=== PATIENT | male | born 1965 | race Caucasian/White ===

== ENCOUNTER 2019-12-23 23:36 | Emergency (ER) | payer MEDICAID, OTHER, SELFPAY ==
[~2019-12-23] VITALS: Ht 193 cm; Wt 108.0 kg
--- NOTE | 2019-12-23 23:43 | NUR ---
PT BIB [facility] FOR 10/10 RIGHT SIDED FLANK PAIN. PT WITH PMH OF KIDNEY STONES. PER EMS, PT WAS PICKED UP AT HOME. IV ACCESS ESTABLISHED EN ROUTE TO [facility]. PT CHANGED INTO GOWN AND INTO GURNEY UPON ARRIVAL. PT ATTACHED TO VS MONITORS. VSS AT THIS TIME. PT EDUCATED ON ER PROCESS AND POC AND VERBALIZES UNDERSTANDING. CALL LIGHT IS WITHIN REACH AT THIS TIME.
[2019-12-23] MEDS ORDERED: SODIUM CHLORIDE 0.9% 1,000 ML IV ONE (23:45)
[2019-12-23] MEDS ORDERED: KETOROLAC 30 MG/1 ML ONE (23:53)
[2019-12-23 23:59] LABS: BASOPHILS # (AUTO) 0.03 x10^3/uL (0-0.1); BASOPHILS % (AUTO) 0 % (0-1); EOSINOPHILS # (AUTO) 0.24 x10^3/uL (0-0.4); EOSINOPHILS % (AUTO) 3 % (1-7); LYMPHOCYTES # (AUTO) 1.95 x10^3/uL (1-3.4); LYMPHOCYTES % (AUTO) 26 % (22-44); MD NO; MEAN CORPUSCULAR HEMOGLOBIN 31.9 pg (27.5-34.5); MEAN CORPUSCULAR HGB CONC 33.9 g/dL (33.2-36.2); MEAN PLATELET VOLUME 7.4 fL (7.4-10.4); MONOCYTES # (AUTO) 0.41 x10^3/uL (0.2-0.8); MONOCYTES % (AUTO) 5 % (2-9); NEUTROPHILS # (AUTO) 4.93 x10^3/uL (1.8-6.8); NEUTROPHILS % (AUTO) 65 % (42-75); PLATELET COUNT 310 x10^3/uL (130-400); RED BLOOD COUNT 4.62 x10^6/uL (4.38-5.82); RED CELL DISTRIBUTION WIDTH 13.3 % (9.4-14.8)
[2019-12-24] MEDS ORDERED: SODIUM CHLORIDE FLUSH 10ML SYR IVF ONE
[2019-12-24] MEDS ORDERED: KETOROLAC 30 MG/1 ML IVPush ONE
--- NOTE | 2019-12-24 00:07 | NUR ---
PT TO CT VIA [facility] AT THIS TIME. PT URINE COLLECTED AND TUBED TO LAB.
[2019-12-24 00:09] LABS: ALBUMIN 3.7 g/dL (3.4-5.0); ANION GAP 6 mmol/L (5-15); CHLORIDE 108 mmol/L (98-107); CREATININE 1.04 mg/dL (0.7-1.3)
[2019-12-24 00:28] LABS: MICROSCOPIC AUTO
[2019-12-24 00:29] LABS: CULTURE INDICATED? NO
[2019-12-24 00:41] VITALS: BP 134/77
--- NOTE | 2019-12-24 00:53 | NUR ---
RESTING IN [facility], NO ACUTE DISTRESS NOTED. CALL LIGHT PLACED WITHIN PT'S REACH.
== END 2019-12-24 01:12 | disposition home or self-care (01) ==
LOC: ED 12-24 00:20
DX: N23 Unspecified renal colic (principal); N20.0 Calculus of kidney; R10.9 Unspecified abdominal pain
CPT/HCPCS: 36415; 74176; 80048; 81001; 82040; 85025; 96374; 99284; J1885; J7030

== ENCOUNTER 2020-08-28 18:54 | Inpatient (IN) | payer MEDICAID ==
[~2020-08-28] VITALS: Ht 193 cm; Wt 100.9 kg
--- NOTE | 2020-08-28 19:11 | NUR ---
BREAK RN: UPON ARRIVAL TO ED EKG WAS DONE AND PRESENTED TO ERP. DR. VELIZ IN TO EVAL PT. AND DISCUSS POC AT THIS TIME. COVID SWAB COMPLETED BY DR. VELIZ. PT. ON CONTINUOUS PULSE OX, B/P, AND CARDIAC MONITORS. IV IN PLACE BY EMS.
--- NOTE | 2020-08-28 19:25 | NUR ---
BREAK RN: LAB AT COMPLETED 2 SETS OF BLOOD CULTURES. PT. AWARE OF NEED FOR URINE SAMPLE; URINAL PLACED AT BS. PT. DENIES OTHER NEEDS AT THIS TIME.
[2020-08-28] MEDS ORDERED: SODIUM CHLORIDE FLUSH 10ML SYR IVF ONE (19:30)
[2020-08-28] MEDS ORDERED: SODIUM CHLORIDE 0.9% 1,000ML IVBOLUS ONE (19:30)
--- NOTE | 2020-08-28 19:34 | NUR ---
IVF STOPPED PER MD ORDER TO D/C.
[2020-08-28 19:44] LABS: BASOPHILS % (AUTO) 1 % (0-1); EOSINOPHILS % (AUTO) 2 % (1-7); LYMPHOCYTES % (AUTO) 19 % (22-44); MEAN CORPUSCULAR HEMOGLOBIN 32.2 pg (27.5-34.5); MEAN CORPUSCULAR HGB CONC 34.4 g/dL (33.2-36.2); MEAN PLATELET VOLUME 7.5 fL (7.4-10.4); MONOCYTES % (AUTO) 10 % (2-9); NEUTROPHILS % (AUTO) 69 % (42-75); PLATELET COUNT 262 x10^3/uL (130-400); RED CELL DISTRIBUTION WIDTH 13.2 % (9.4-14.8)
[2020-08-28 19:53] LABS: ALANINE AMINOTRANSFERASE 37 U/L (12-78); ALBUMIN 4.2 g/dL (3.4-5.0); ANION GAP 8 mmol/L (5-15); C-REACTIVE PROTEIN, QUANT 0.11 mg/dL (0.02-0.49); CALCIUM 8.7 mg/dL (8.5-10.1); CHLORIDE 107 mmol/L (98-107); CREATININE 1.14 mg/dL (0.7-1.3)
[2020-08-28 19:54] LABS: MD NO
[2020-08-28 19:57] LABS: ALKALINE PHOSPHATASE 74 U/L (45-117); BILIRUBIN,TOTAL 0.3 mg/dL (0.2-1.0); TOTAL PROTEIN 8.3 g/dL (6.4-8.2)
[2020-08-28] MEDS ORDERED: CEFTRIAXONE PMX 1GM/50ML 50 ML IV ONE ×2 (20:30→23:00)
[2020-08-28 20:38] LABS: FIBRINOGEN 325 mg/dL (200-340); PROTIME 10.4 Seconds (9.6-11.5); PTT 28 Seconds (25-31)
[2020-08-28 20:39] LABS: D-DIMER (DIC) < 0.19 ug/mlFEU (0.00-0.52)
[2020-08-28 20:52] LABS: PLATELET (DIC) 262 x10^3/uL (130-400)
[2020-08-28] MEDS ORDERED: CEFTRIAXONE PMX 1GM/50ML 50 ML ONE (21:38)
--- NOTE | 2020-08-28 21:44 | NUR ---
Pt medicated for elevated bp. Pt given abx.
[2020-08-28] MEDS ORDERED: ACETAMINOPHEN 500 MG TABLET ONE (21:58)
[2020-08-28] MEDS ORDERED: ACETAMINOPHEN 500 MG TABLET PO ONE (22:00)
--- NOTE | 2020-08-28 22:07 | NUR ---
Pt medicated for pain at this time.
[2020-08-28 22:28] VITALS: BP_SYST 163; BP_SYST 177; BP_DIAS 109; BP_DIAS 118
[2020-08-28] MEDS ORDERED: LIDODERM 5% PATCH TD PRN (23:00)
[2020-08-28] MEDS ORDERED: DOCUSATE 100 MG CAPSULE PO PRN (23:00)
[2020-08-28] MEDS ORDERED: MELATONIN 5 MG TABLET PO PRN (23:00)
[2020-08-28] MEDS ORDERED: ACETAMINOPHEN 325 MG TABLET PO PRN (23:00)
[2020-08-28] MEDS ORDERED: LORazepam 1MG TABLET PO PRN (23:00)
[2020-08-28] MEDS ORDERED: ENOXAPARIN 40 MG/0.4 ML SQ SCH (23:00)
[2020-08-28] MEDS ORDERED: IBUPROFEN 600 MG TABLET PO PRN (23:00)
[2020-08-29 01:21] LABS: MICROSCOPIC NOT IND
[2020-08-29 01:23] VITALS: BP 129/89
[2020-08-29 01:45] LABS: CLOSTRIDIUM DIFFICILE ANTIGEN NEGATIVE; CLOSTRIDIUM DIFFICILE TOXIN NEGATIVE (Negative)
[2020-08-29 06:15] LABS: BASOPHILS % (AUTO) 1 % (0-1); EOSINOPHILS % (AUTO) 2 % (1-7); LYMPHOCYTES % (AUTO) 34 % (22-44); MEAN CORPUSCULAR HEMOGLOBIN 32.1 pg (27.5-34.5); MEAN PLATELET VOLUME 7.7 fL (7.4-10.4); MONOCYTES % (AUTO) 11 % (2-9); NEUTROPHILS % (AUTO) 53 % (42-75); PLATELET COUNT 258 x10^3/uL (130-400); RED BLOOD COUNT 4.69 x10^6/uL (4.38-5.82); RED CELL DISTRIBUTION WIDTH 12.8 % (9.4-14.8)
[2020-08-29 06:21] LABS: ALBUMIN 3.5 g/dL (3.4-5.0); ANION GAP 7 mmol/L (5-15); CALCIUM 8.7 mg/dL (8.5-10.1); CHLORIDE 110 mmol/L (98-107)
[2020-08-29 06:25] LABS: ALANINE AMINOTRANSFERASE 29 U/L (12-78); ALKALINE PHOSPHATASE 63 U/L (45-117); BILIRUBIN,TOTAL 0.3 mg/dL (0.2-1.0); CREATINE KINASE, TOTAL 78 U/L (39-308); CREATININE 0.97 mg/dL (0.7-1.3); TOTAL PROTEIN 7.2 g/dL (6.4-8.2)
[2020-08-29 06:39] LABS: MD NO
[2020-08-29 06:46] VITALS: BP 135/85
[2020-08-29] MEDS ORDERED: FLU VACC QS2020-21(6MOS UP)/PF 60MCG/0.5 ML SYR IM-VACC ONE (12:00)
[2020-08-29] MEDS ORDERED: AMLO5TAB4 PO (12:06)
[2020-08-29] MEDS ORDERED: AMOX-291 PO (12:06)
[2020-08-29 12:09] VITALS: BP 157/104
[2020-08-29] MEDS ORDERED: CEFTRIAXONE PMX 2GM/50ML 50 ML IV SCH (21:00)
== END 2020-08-29 16:44 | disposition home or self-care (01) | DRG 871 ==
LOC: ED 21:20 → EDIP 21:30 → 4EST 22:21
PROVIDERS: ADMIT Family Medicine; ATTEND Family Medicine
DX: A41.9 Sepsis, unspecified organism (principal); J15.9 Unspecified bacterial pneumonia; F41.9 Anxiety disorder, unspecified; F32.9 Major depressive disorder, single episode, unspecified; I10 Essential (primary) hypertension; Z20.828 Contact with and (suspected) exposure to other viral communicable diseases; I16.0 Hypertensive urgency; Z91.14 Patient's other noncompliance with medication regimen
CPT/HCPCS: 36415; 71045; 80053; 81003; 82550; 82728; 83605; 83615; 84145; 85025; 85049; 85379; 85384; 85610; 85730; 86140; 87040; 87324; 87635; 90686; 93005; G0378; J0696; J1650; J7030